=== PATIENT | male | born 1985 | race Caucasian/White ===

== ENCOUNTER 2019-10-25 10:55 | Emergency (ER) | payer OTHER ==
--- NOTE | 2019-10-25 11:21 | ED Physician Documentation ---
PD HPI URI - Stated complaint Stated Complaint: SOA,COUGH,WHEEZING - Chief complaint Chief Complaint: Resp - History obtained from History obtained from: Patient - History of Present Illness Timing - onset: How many weeks ago (1) Timing details: Gradual onset Associated symptoms: Nasal congestion, Rhinorrhea, Sore throat, Productive cough, Dyspnea. 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 He does have a history of environmental reactive type airway disease that he has an inhaler for. He did not try his rescue inhaler with this but did try his orange click inhaler just and make him feel right so he did not use it again. He thinks it helped him breathe a little bit though. He is also concerned because he is got yellow nasal mucus with minimal sinus pressure. He has a sore throat only at night. Then over the past couple of days he is developed a white discharge in his eyes and they are little bit crusty in the morning. His eyes have also become a little bit bloodshot. Does not have a fever. Review of Systems Constitutional: denies: Fever Eyes: reports: Discharge, Other (Bloodshot) Ears: denies: Ear pain Nose: reports: Rhinorrhea / runny nose, Congestion Throat: reports: Sore throat Cardiac: reports: Chest pain / pressure (Ribs are hurting). denies: Pedal edema Respiratory: reports: Dyspnea, Cough, Wheezing GI: denies: Vomiting PD PAST MEDICAL HISTORY - Past Surgical History Past Surgical History: Yes - Present Medications Home Medications: Ambulatory Orders Medication Instructions Recorded Confirmed Albuterol Sulf [Ventolin Hfa 1 - 2 puffs INH Q4HR PRN #1 inhaler 10/25/19 Inhaler] Azithromycin [Zithromax] 0 mg PO DAILY #6 tablet 10/25/19 Polymyxin B Sulf/Trimethoprim 10 ml OP Q6H #1 bottle 10/25/19 [Polytrim Eye Drops] Testosterone Cypionate 0 mg IM OAW 10/25/19 10/25/19 [Depo-Testosterone] - Allergies Allergies/Adverse Reactions: Allergies Allergy/AdvReac Type Severity Reaction Status Date / Time No Known Drug Allergies Allergy Verified 10/25/19 10:59 - Social History Does the pt smoke?: No Smoking Status: Never smoker Does the pt drink ETOH?: Yes Does the pt have substance abuse?: No - Immunizations Immunizations: Other immun current PD ED PE NORMAL - Vitals Vital signs reviewed: Yes - General General: Alert and oriented X 3, No acute distress, Well developed/nourished, Other (Obese, Very pleasant) - HEENT HEENT: Atraumatic, PERRL, Other (Minimal conjunctival injection bilaterally. No active drainage. Mucous membranes are very congested with hyperemia and bogginess and just a clear mucoid drainage. Tonsils are not particularly enlarged but there is erythema. There are 2 or 3 tonsilloliths noted on the left tonsil.) - Neck Neck: Supple, no meningeal sign - Cardiac Cardiac: RRR, No murmur, Strong equal pulses - Respiratory Respiratory: No respiratory distress, Other (Slightly diminished and there was an end expiratory wheeze when he was coughing.) Results - Vitals Vitals: Vital Signs - 24 hr 10/25/19 10/25/19 10:59 11:46 Temperature 36.6 C Heart Rate 85 92 Respiratory 14 16 Rate Blood Pressure 134/100 H O2 Saturation 97 Oxygen O2 Source Room air PD MEDICAL DECISION MAKING - ED course Complexity details: re-evaluated patient, d/w patient ED course: Patient was given an albuterol nebulizer. His lungs might of been a little more clear but he certainly felt like he was able to breathe easier. Will treat him with a Zithromax Z-DARLENE and refill his albuterol inhaler. I recommended Delsym [id number]. Follow-up if not improving. Departure - Departure Disposition: 01 Home, Self Care Clinical Impression: Bronchitis Condition: Good Instructions: ED Upper Resp Infec Abx Tx Follow-Up: your,doctor [Other] Prescriptions: Albuterol Sulf [Ventolin Hfa Inhaler] 1 - 2 puffs INH Q4HR PRN #1 inhaler PRN Reason: Shortness Of Air/Wheezing Azithromycin [Zithromax] 0 mg PO DAILY #6 tablet Polymyxin B Sulf/Trimethoprim [Polytrim Eye Drops] 10 ml OP Q6H #1 bottle Comments: Take the Z-Darlene as prescribed. Use the albuterol inhaler up to every 4 hours as needed for shortness of breath. May use Delsym [id number] for the cough. Follow-up if not improving.
[2019-10-25] MEDS ORDERED: ALBUTEROL NEB 2.5 MG/3 ML INH STA (11:33)
[2019-10-25 13:41] VITALS: BP 155/92
== END 2019-10-25 13:40 | disposition home or self-care (01) ==
LOC: ED 10:55
DX: J40 Bronchitis, not specified as acute or chronic (principal)
CPT/HCPCS: 94640; 99283; 99284